=== PATIENT | female | born 1930 ===

== ENCOUNTER 2019-08-07 08:17 | Day surgery (SDC) | payer MEDICARE ==
[~2019-08-07 08:17] MED LIST: Buffered Lidocaine 1% SYRIN* 1 ML/SYRINGE INTRADERM ONE; Lactated Ringers 1000 ML Bag* 1,000 ML IV SCH
[2019-08-07] MEDS ORDERED: Midazolam* 1 MG/ML 2 ML VIAL (2 MG) ONE (08:46)
[2019-08-07] MEDS ORDERED: Buffered Lidocaine 1% SYRIN* 1 ML/SYRINGE INTRADERM ONE (08:52)
[2019-08-07] MEDS ORDERED: ceFAZolin 2 GM PREMIX in ORs 2 GM/50 ML BAG ONE (08:52)
[2019-08-07] MEDS ORDERED: Lidocaine 1% w EPI 1:100,000* MDV 20 ML VIAL ONE ×2 (09:16→10:18)
[2019-08-07] MEDS ORDERED: Bupivacaine 0.25% SDV* 30 ML ONE (09:16)
[2019-08-07] MEDS ORDERED: BSS OPTH.SOL* BTL ONE (10:04)
[2019-08-07] MEDS ORDERED: Ondansetron INJ* 2 MG/ML VIAL IV PRN (10:33)
[2019-08-07] MEDS ORDERED: Naloxone* 0.4 MG/ML 1 ML VIAL IV PRN (10:33)
[2019-08-07] MEDS ORDERED: Ketorolac INJ* 30 MG/ML 1 ML VIAL IV PRN (10:33)
[2019-08-07] MEDS ORDERED: Acetaminophen TAB* 325 MG PO PRN (10:33)
[2019-08-07 12:52] VITALS: BP 133/66
== END 2019-08-07 12:45 | disposition home or self-care (01) ==
LOC: OR 08:17
PROVIDERS: ATTEND Plastic Surgery
DX: C43.39 Malignant melanoma of other parts of face (principal); I44.7 Left bundle-branch block, unspecified; J84.10 Pulmonary fibrosis, unspecified; Z99.81 Dependence on supplemental oxygen; Z86.73 Personal history of transient ischemic attack (TIA), and cerebral infarction without residual deficits; I65.29 Occlusion and stenosis of unspecified carotid artery; E78.5 Hyperlipidemia, unspecified; I25.10 Atherosclerotic heart disease of native coronary artery without angina pectoris; I73.9 Peripheral vascular disease, unspecified; Z87.891 Personal history of nicotine dependence
CPT/HCPCS: 88305; A9270-GY; J0690; J2250; J3490